=== PATIENT | female | born 1985 | race Caucasian/White ===

== ENCOUNTER 2017-06-12 08:06 | Day surgery (SDC) | payer MEDICAID, SELFPAY ==
[2017-06-11 14:12] VITALS: BMI 42.5
[2017-06-12] VITALS (11 sets, daily range): BP systolic 113–129; BP diastolic 65–75; PULSE 54–85; RESP 16–18; TEMP 36.4–43; O2SAT 94–100
[2017-06-12 08:23] LABS: Urine Pregnancy, HCG Qual. Negative (Negative)
--- NOTE | 2017-06-12 08:33 | HMH.ANESCL ---
[facility] Anesthesia Checklist - Patient Identification Patient Identification: Arm Band - Structural Data Admitted From: Home Planned Operative Procedure/s: lap btl Consent for Planned Operative Procedure(s) Verified: Yes Verified Documents: Surgical Consent, History and Physical - NPO Status Verified Time NPO: 00:00 - Additional verifications Anesthesia Reactions: No - Airway Assessment C-Spine Mobility Assessed: Yes (mp2) TMJ Mobility Assessed: Yes Dentition: Good Dentition - Neurological Assessment Level of Consciousness: Awake, Alert - Anesthesia Plan Anesthesia Risk discussed: Yes Anesthesia Plan: Verified ASA Class: II Anesthesia Type: General [facility] Anesthesia HX I have reviewed the patient's past medical history: Yes Medical History: Reports:: Migraine Denies:: Cancer, Diabetes Mellitus Type 1, Diabetes Mellitus Type 2, MRSA, Seizures Other Medical History: Denies: Blood Transfusion Reaction Laterality Cases: Bilateral: Other Other Surgeries: Yes: Dilation and Curettage, Other (toribio) Amputation: No Fractures: No *Family Hx:: Diabetes, Hyperlipidemia, Hypertension, Stroke
[2017-06-12 08:37] LABS: Basophils % 0.3 % (0.1-2.0); Eosinophils # 0.3 K/mm3 (0.0-0.4); Eosinophils % 4.9 % (0.1-12.0); Hematocrit 45.6 % (37.0-47.0); Hemoglobin 16.3 g/dL (12.2-16.2); Lymphocytes # 2.6 K/mm3 (0.7-4.5); Lymphocytes % 37.1 K/mm3 (10-50); Mean Corpuscular HGB Conc 35.7 g/dL (31.8-35.4); Mean Corpuscular Hemoglobin 30.9 pg (27.0-31.2); Mean Corpuscular Volume 86.5 fl (81-99); Mean Platelet Volume 9.5 fl (7.4-10.4); Monocytes # 0.3 K/mm3 (0.1-1.0); Monocytes % 4.9 % (1.7-9.3); Neutrophils # 3.6 K/mm3 (1.8-7.8); Neutrophils % 52.7 % (37.0-80.0); Platelet Count 262 K/mm3 (142-424); Red Blood Count 5.27 M/mm3 (4.20-5.40); White Blood Count 6.9 K/mm3 (4.8-10.8)
[2017-06-12 08:40] LABS: Blood Urea Nitrogen 16 mg/dL (7-18); Carbon Dioxide 25 mmol/L (21.0-32.0); Chloride 104 mmol/L (98-107); Creatinine Clearance Estimated 74 mL/min (0-300); Creatinine,Serum 0.91 mg/dL (0.55-1.02); Estimated Glomerular Filt Rate 72 ml/min (>60); GFR (African American) 87 ML/MIN (>60); Glucose 108 mg/dL (74-106); Sodium 136 mmol/L (136-145)
[2017-06-12 09:07] LABS: Potassium 3.6 mmoL/L (3.5-5.1)
[2017-06-12 09:08] LABS: Anion Gap 10.6 mEq/L (5-15)
--- NOTE | 2017-06-12 09:46 | HMH.ANESI ---
[facility] Anesthesia Record Part I Intake, IV Amount: 1,000 Estimated blood loss (mL): 25 Urine output (mL): 50 Blood Pressure: 129/73 SaO2: 95 Pulse Rate: 85 Respiratory Rate: 16 Temperature: 97.6 F Patient is:: Drowsy, Stable Stable to PACU at:: 09:40
--- NOTE | 2017-06-12 09:47 | P.PN_ITS ---
[facility] Anesthesia Record Part II Discharge Time: 10:10 Destination: [facility] PACU nurse assessment reviewed?: Yes Patient Condition:: Good Anesthesia Complications:: None
--- NOTE | 2017-06-12 09:47 | HMH.ANESII ---
[facility] Anesthesia Record Part II Discharge Time: 10:10 Destination: [facility] PACU nurse assessment reviewed?: Yes Patient Condition:: Good Anesthesia Complications:: None
--- NOTE | 2017-06-12 09:50 | P.OP_ITS ---
Date of procedure: 06/12/17 Pre-op Diagnosis:: Desire for sterilization Post-op Diagnosis:: Desire for sterilization Procedure performed:: Laparoscopic bilateral salpingectomy Surgeon:: Richard Jimenez MD METALLURGICAL ANALYST:: Wilfredo Alex Anesthesia: GETA Estimated blood loss (mL): 25 Clinical Note:: She is a 31-year-old 3 para 3 who expressed desire for sterilization. The risks and benefits as well as the irreversibility of bilateral salpingectomy were discussed with the patient prior to surgery. Operative findings:: She had a normal-appearing anteverted uterus. The tubes and ovaries appeared normal. The deep pelvis appear normal. Operative note:: She was taken to the operating room where general anesthesia was found to be adequate. She was prepped and draped in the normal sterile fashion in the semilithotomy position. A weighted speculum was placed in the vagina and the anterior lip of the cervix was grasped with a tenaculum. I then inserted a Lorie uterine manipulator into the uterine cavity. The balloon was insufflated. I changed gloves and then injected 10 cc of 0.5% ropivacaine around the umbilicus. I made a small incision within the umbilicus and inserted a Veress needle into the abdominal cavity. The abdominal cavity was then insufflated with carbon dioxide gas to a pressure of 20 mmHg. I then millimeter trocar under direct vision. I injected through and through the pubic hairline, made a small incision and then inserted an 8 mm trocar under direct vision. I then identified the inferior epigastric arteries, went lateral to these and injected through and through. I then inserted a 5 mm trocar under direct vision. The right tube was grasped cornua and I cauterized across this with harmonic scalpel. I then grasped the distal end of the tube and cauterized and cut along the mesosalpinx. This was similar performed on the patient's left side. 2 tubes were then removed through the 8 mm trocar site. We then injected approximately 30 cc of 0.5% ropivacaine into the pelvis. We let the gas out of the abdomen and once again hemostasis was assured. We then reinsufflated and removed the secondary trochars under direct vision. The gas was then let out of the abdomen and the primary trocar and camera removed. The 8 mm trocar site was then closed deeply with 2-0 Vicryl suture followed by interrupted subcuticular 4-0 Monocryl suture. The 5 mm trocar sites were closed with subcuticular 4-0 Monocryl suture. Sterile dressings were applied. The patient tolerated procedure well and was taken recovery room in excellent condition. All sponge instrument and needle counts were correct. The estimated blood loss was less than 25 cc. Condition: stable Disposition: PACU Specimens:: Bilateral fallopian tubes Complications:: None
--- NOTE | 2017-06-12 12:37 | PC.NURSE ---
straight in/out catheterization performed prior to procedure during prep
== END 2017-06-12 10:58 | disposition home or self-care (01) ==
LOC: OR 08:07
PROVIDERS: Family Provider Family Medicine; PCP Family Medicine; Visit Provider Nurse Practitioner Obstetrics & Gynecology
PROC: (CPT 58661; principal; 2017-06-12 09:15)
DX: Z30.2 Encounter for sterilization (principal)
CPT/HCPCS: 58661; 80048; 81025; 85025; 96374; J0131; J2405; J2710

== ENCOUNTER 2021-10-27 18:13 | Emergency (ER) | payer MEDICAID, SELFPAY ==
--- NOTE | 2021-10-27 18:35 | HMH.EDUTC ---
[facility] Disposition Clinical Impression: STD exposure Disposition: Home, Self-Care Condition on Discharge: Good Instructions: Facts About Sexually Transmitted Infections, How to Detect and Treat STDs Additional Instructions: Drink plenty of fluids. Follow up with your primary care physician to get your results and for further treatment. I put in a referral to Dr. Jimenez here at this [facility]. Please call his office and get an appointment with in the next few weeks. GO TO THE ER FOR ANY WORSENING SYMPTOMS Referrals: Abraham Mendoza [Primary Care Provider] - Time of Disposition: 19:23 Medical Decision Making - Medical Records Medical records reviewed: No: I reviewed the patient's medical records. - Bong Inquiry Pt receiving controlled substance: No Vital Signs: 10/27/21 18:37 10/27/21 19:39 Temperature 98.6 F 98.6 F Temperature Source Oral Pulse Rate 82 Pulse Rate [Left] 82 Respiratory Rate 16 16 Blood Pressure 133/76 Blood Pressure [Right Arm] 133/76 Blood Pressure Mean [Right Arm] 95 02 Sat by Pulse Oximetry 98 - Lab Data Lab Results 10/27/21 18:34: C. trachomatis (JORGE L) Negative, N. gonorrhoeae (JORGE L) Negative 10/27/21 18:57: RPR Titer Non reactive, HSV I IgG Ab 17.00 H, HSV II IgG <0.91 10/27/21 18:57: HIV 1&2 Ag/Ab, 4th Gen Non reactive Orders (Tests/Meds): ORDERS Category Date Time Status HIV Panel [id number] Stat Lab 10/27/21 18:57 Results Hepatitis Panel (4) Stat Lab 10/27/21 18:57 Results [facility] HPI - General Stated complaint: needs tested for STD Time Seen by Provider: 10/27/21 19:00 - History of Present Illness Provider Complaint: She recently found out her significant other was cheating on her. She denies any symptoms of std's, but she would like to be checked. - Related Data Home Medications Medication Instructions Recorded Confirmed desogestrel 0.15 mg-ethinyl 1 tab PO ONCE 05/13/17 11/01/21 estradiol 0.03 mg tablet Previous Rx's Medication Instructions Recorded fluconazole 150 mg tablet 150 mg PO ONCE 0 Days #2 tab 11/01/21 terconazole 0.8 % vaginal cream 1 appful VG HS 7 Days #20 gm 11/01/21 Allergies Allergy/AdvReac Type Severity Reaction Status Date / Time Penicillins [PENICILLINS] Allergy Unknown Verified 11/01/21 09:11 [facility]Pack Allergy Mild Rash Uncoded 11/01/21 09:11 [place] History - Hepatitis A Screen Attestation statement:: This patient has been screened for Hepatitis A risk factors. I have reviewed the patient's past medical history: Yes Medical History: Reports:: Migraine Denies:: Cancer, Diabetes Mellitus Type 1, Diabetes Mellitus Type 2, MRSA, Seizures Other Medical History: Denies: Blood Transfusion Reaction Laterality Cases: Bilateral: Other Other Surgeries: Yes: Dilation and Curettage, Tubal Ligation (salpingectomy 06/12/2017), Other Amputation: No Fractures: No Comment: salpingectomy 06/12/2017 - Social History Smoking Status: Never smoker Alcohol Intake: never Alcohol Intake Frequency:: holidays/special occasions only Substance Use Type: denies use Occupational Status: other Housing: house Household Members: spouse Family Hx:: Diabetes, Hyperlipidemia, Hypertension, Stroke Comment: Mother alive-diabetes. Father alive-pancreatitis, strokes. children alive [employer] history: Spontaneous , Tubal Ligation ROS Obtained: Yes All systems reviewed & no additional complaints - Constitutional Constitutional: Denies chills, Denies fever(s) - Eyes Eyes: Denies eye discharge - Genitourinary Female Genitourinary: Denies urinary frequency, Denies urinary incontinence, Denies urinary hesitancy, Denies urinary urgency, Denies vaginal discharge - Musculoskeletal Musculoskeletal: Denies back pain - Integumentary/Breasts Skin/Breast: Denies rash Physical Exam - General General appearance: alert, in no apparent distress - Head Head exam: atraumatic, normocephalic, normal inspection -
[2021-10-27 18:37] VITALS: BP 133/76; PULSE 82; RESP 16; TEMP 37; O2SAT 98; BMI 44.2
[2021-10-27 19:39] VITALS: BP 133/76; PULSE 82; RESP 16; TEMP 37
[2021-10-29 08:13] LABS: HSV 2 IgG, Type Spec <0.91 index (0.00-0.90); Rapid Plasma Reagin Ab Titer Non Reactive (NonRea<1:1)
[2021-10-29 10:10] LABS: HIV Screen 4th Generation wRfx Non Reactive (Non Reactive)
[2021-10-30 22:10] LABS: Neisseria gonorrhoeae, NAA Negative (Negative)
[2021-11-11 18:05] LABS: Hep A Ab, IgM Negative; Hepatitis B Surface Antigen Negative; Hepatitis C Antibody 0.1
[2021-11-11 18:06] LABS: Hepatitis B Core Antibody IgM Negative
== END 2021-10-27 19:40 | disposition home or self-care (01) ==
PROVIDERS: Emergency Provider Nurse Practitioner Family; PCP Pediatrics
DX: Z03.89 Encounter for observation for other suspected diseases and conditions ruled out (principal); Z20.2 Contact with and (suspected) exposure to infections with a predominantly sexual mode of transmission; G43.909 Migraine, unspecified, not intractable, without status migrainosus; Z79.890 Hormone replacement therapy; Z79.51 Long term (current) use of inhaled steroids; Z88.0 Allergy status to penicillin; Z88.8 Allergy status to other drugs, medicaments and biological substances; Z82.49 Family history of ischemic heart disease and other diseases of the circulatory system; Z83.3 Family history of diabetes mellitus; Z83.438 Family history of other disorder of lipoprotein metabolism and other lipidemia; Z83.79 Family history of other diseases of the digestive system
CPT/HCPCS: 80074; 86592; 86695; 86703; 86790; 87086; 87491; 87591; 99213; G0432; G0463